=== PATIENT | female | born 1995 | race Caucasian/White ===

== ENCOUNTER 2024-11-23 08:21 | Outpatient (OUT) | payer OTHER, SELFPAY ==
--- NOTE | 2024-11-23 08:28 | US_ITS ---
The [address] [address] Patient Name: ANTHONY ROLLINS MRN: [id number] date: 1995 Sex: F Assigned Patient Location: US Current Patient Location: Accession/Order Number: [id number] Exam Date: 11/23/2024 09:39 Report Date: 11/23/2024 09:42 At the request of: NON-STAFF PHYSICIAN Procedure: US pelvis transvaginal ULTRASOUND PELVIS TRANSVAGINAL CLINICAL DATA: Nonvisualization of IUD string. COMPARISON: None Real-time ultrasound evaluation pelvis was performed utilizing a transvaginal approach. Estimated uterine size is approximately 8.0 x 5.2 x 3.4 cm. No focal myometrial abnormalities are identified. The IUD is visualized within the endometrial canal and is in appropriate position. The endometrial lining measures approximately 2 mm in thickness. Both ovaries are identified. The right ovary measures 4.0 x 3.0 x 1.8 cm. The left ovary measures 3.1 x 2.2 x 2.6 cm. Small follicles are present. There are no dominant adnexal cysts. There is documentation of ovarian blood flow. A small amount of free fluid is present at the visualized cul-de-sac. US/US pelvis transvaginal IMPRESSION: IUD IN APPROPRIATE POSITION. NO DOMINANT ADNEXAL CYSTS. SMALL AMOUNT OF FREE PELVIC FLUID. Impression dictated by: Hortencia Bueno M.D. 11/23/2024 9:42 AM Dictation Location: [place] [address] Electronically authenticated by: [id number] Date: 11/23/2024 09:42
== END 2024-11-23 08:22 | disposition home or self-care (01) ==
LOC: US 08:24
PROVIDERS: PCP Family Medicine
DX: N93.9 Abnormal uterine and vaginal bleeding, unspecified (principal); Z30.431 Encounter for routine checking of intrauterine contraceptive device; T83.32XA Displacement of intrauterine contraceptive device, initial encounter
CPT/HCPCS: 76830